=== PATIENT | female | born 1930 | race Caucasian/White ===

== ENCOUNTER 2017-07-10 11:24 | Inpatient (IN) | payer MEDICARE, OTHER ==
[2017-07-10] MEDS: HYDROCODONE/APAP (5/325) TAB PO (11:54)
[2017-07-10 12:18] LABS: ADD MAN DIFF? NO
[2017-07-10 12:54] LABS: WHITE BLOOD COUNT 10.5 10^3/ul (4.8-10.8)
[2017-07-10 12:54] LABS: BASOPHIL # 0.1 10^3/ul (0.0-0.1); BASOPHILS % 0.5 % (0.0-2.0); EOSINOPHILS % 0.2 % (0.0-7.0); HEMATOCRIT 34.1 % (37.0-47.0); HEMOGLOBIN 11.4 g/dl (12.0-16.0); LYMPHOCYTES # 0.7 10^3/ul (0.8-2.9); LYMPHOCYTES % 6.3 % (15.0-51.0); MEAN CORPUSCULAR HEMOGLOBIN 34.9 pg (29.0-33.0); MEAN CORPUSCULAR HGB CONC 33.4 g/dl (32.0-37.0); MEAN CORPUSCULAR VOLUME 104.3 fl (82.0-101.0); MEAN PLATELET VOLUME 10.4 fl (7.4-10.4); MONOCYTE # 0.6 10^3/ul (0.3-0.9); MONOCYTES % 5.9 % (0.0-11.0); NEUTROPHILS % 84.8 % (39.0-77.0); PLATELET COUNT 158 10^3/UL (140-415); RED BLOOD COUNT 3.27 10^6/ul (4.20-5.40); RED CELL DISTRIBUTION WIDTH 13.8 % (11.5-14.5)
[2017-07-10 13:11] LABS: ANION GAP 16 (8-16); BLOOD UREA NITROGEN 40 mg/dl (7-20); CALCIUM 9.2 mg/dl (8.4-10.2); CARBON DIOXIDE 27 mmol/L (21-31); CHLORIDE 102 mmol/L (97-110); CREATININE 1.08 mg/dl (0.44-1.00); GLUCOSE 135 mg/dl (70-220); SODIUM 141 mmol/L (135-144)
[2017-07-10 13:24] LABS: TROPONIN-I < 0.012 ng/ml (0.00-0.12)
[2017-07-10 13:26] LABS: INR 1.07; PT RATIO 1.1
[2017-07-10] MEDS: morphine 2 MG INJ IV (14:09)
[2017-07-10] MEDS: VANCOMYCIN 1 GM in 250 ML IVPB (14:46)
[2017-07-10] MEDS ORDERED: ONDANSETRON 4 MG INJ IV (16:00)
[2017-07-10] MEDS ORDERED: DIPHENHYDRAMINE 50 MG INJ IV (16:00)
[2017-07-10] MEDS: FENTAnyl 50 MCG/ML VIAL IV ×2 (17:25→19:33)
[2017-07-10 19:05] LABS: ADD UMIC YES; UR ASCORBIC ACID NEGATIVE (NEGATIVE); UR BILIRUBIN (Dip) NEGATIVE (NEGATIVE); UR BLOOD (Dip) NEGATIVE (NEGATIVE); UR CLARITY CLEAR (CLEAR); UR COLOR STRAW (YELLOW); UR GLUCOSE (Dip) NEGATIVE (NEGATIVE); UR KETONES (Dip) NEGATIVE (NEGATIVE); UR LEUKOCYTE ESTERASE (Dip) TRACE Leu/ul (NEGATIVE); UR NITRITE (Dip) NEGATIVE (NEGATIVE); UR RBC 1 /HPF (0-5); UR SPECIFIC GRAVITY (Dip) 1.009 (1.003-1.030); UR TOTAL PROTEIN (Dip) NEGATIVE (NEGATIVE); UR UROBILINOGEN (Dip) NEGATIVE (NEGATIVE); UR WBC 1 /HPF (0-5)
[2017-07-10 19:11] LABS: SODIUM,URINE RANDOM 102 mmol/L (30-90)
[2017-07-10 19:11] LABS: CREATININE,URINE RANDOM 24.09 mg/dl (20-320)
[2017-07-10] MEDS: POLYMYXIN/BACITRACIN 1L IRRIG IRR (19:32)
[2017-07-10] MEDS: FAMOTIDINE 20 MG TAB PO (21:28)
[2017-07-10] MEDS: GABAPENTIN 100 MG CAP PO (21:29)
[2017-07-10] MEDS: CHOLECALCIFEROL 1,000 UNIT TAB PO (21:29)
[2017-07-10] MEDS: oxyCODONE (CR) 20 MG TAB [oxyCONTIN] PO (21:32)
[2017-07-10] MEDS: ISOSORBIDE MONONITRATE 20 MG TAB PO (22:40)
[2017-07-11] MEDS: oxyCODONE (CR) 20 MG TAB [oxyCONTIN] PO ×3 (06:00→17:11)
[2017-07-11] MEDS: PANTOPRAZOLE (EC) 40 MG TAB PO (06:01)
[2017-07-11 07:06] LABS: ADD MAN DIFF? NO
[2017-07-11 07:29] LABS: WHITE BLOOD COUNT 5.6 10^3/ul (4.8-10.8)
[2017-07-11 07:29] LABS: BASOPHILS % 0.5 % (0.0-2.0); EOSINOPHILS # 0.1 10^3/ul (0.0-0.5); EOSINOPHILS % 1.1 % (0.0-7.0); HEMATOCRIT 27.4 % (37.0-47.0); HEMOGLOBIN 9.2 g/dl (12.0-16.0); LYMPHOCYTES # 1.1 10^3/ul (0.8-2.9); LYMPHOCYTES % 18.8 % (15.0-51.0); MEAN CORPUSCULAR HEMOGLOBIN 34.8 pg (29.0-33.0); MEAN CORPUSCULAR HGB CONC 33.6 g/dl (32.0-37.0); MEAN CORPUSCULAR VOLUME 103.8 fl (82.0-101.0); MEAN PLATELET VOLUME 10.4 fl (7.4-10.4); MONOCYTE # 0.6 10^3/ul (0.3-0.9); MONOCYTES % 10.3 % (0.0-11.0); NEUTROPHIL # 3.8 10^3/ul (1.6-7.5); NEUTROPHILS % 67.9 % (39.0-77.0); PLATELET COUNT 137 10^3/UL (140-415); RED BLOOD COUNT 2.64 10^6/ul (4.20-5.40); RED CELL DISTRIBUTION WIDTH 13.9 % (11.5-14.5)
[2017-07-11 07:36] LABS: PHOSPHORUS 3.9 mg/dl (2.5-4.9)
[2017-07-11 07:36] LABS: MAGNESIUM 1.3 mg/dl (1.7-2.5)
[2017-07-11 07:37] LABS: ALANINE AMINOTRANSFERASE 20 IU/L (13-69); ALBUMIN 3.4 g/dl (3.3-4.9); ALBUMIN/GLOBULIN RATIO 1.54; ALKALINE PHOSPHATASE 27 IU/L (42-121); ANION GAP 12 (8-16); ASPARTATE AMINO TRANSFERASE 23 IU/L (15-46); BILIRUBIN,INDIRECT 0.6 mg/dl (0-1.1); BILIRUBIN,TOTAL 0.6 mg/dl (0.2-1.3); BLOOD UREA NITROGEN 36 mg/dl (7-20); CALCIUM 8.7 mg/dl (8.4-10.2); CARBON DIOXIDE 30 mmol/L (21-31); CHLORIDE 100 mmol/L (97-110); CREATININE 0.94 mg/dl (0.44-1.00); GLUCOSE 92 mg/dl (70-220); POTASSIUM 3.6 mmol/L (3.5-5.1); SODIUM 138 mmol/L (135-144); TOTAL PROTEIN 5.6 g/dl (6.1-8.1)
[2017-07-11 07:47] LABS: TROPONIN-I < 0.012 ng/ml (0.00-0.12)
[2017-07-11] MEDS: INSULIN ASPART [NOVOLOG] 3 ML PEN SC ×4 (07:55→21:00)
[2017-07-11] MEDS ORDERED: GLUCOSE GEL 15 GRAM TUBE PO ×2 (08:00)
[2017-07-11] MEDS ORDERED: GLUCOSE GEL 15 GRAM TUBE BUCCAL (08:00)
[2017-07-11] MEDS ORDERED: DEXTROSE 50% 50 ML SYRINGE IV ×2 (08:00)
[2017-07-11] MEDS ORDERED: GLUCAGON 1 MG INJ IM (08:00)
[2017-07-11] MEDS: Discontinue current oral sulfonylureas (glyburide, glipizide, and/or glimepiride) prior to XX (08:13)
[2017-07-11] MEDS: HYPOGLYCEMIA PROTOCOL when Glucose is <70 mg/dL or symptomatic <90 mg/dL. XX (08:13)
[2017-07-11] MEDS: GABAPENTIN 100 MG CAP PO ×3 (08:26→20:59)
[2017-07-11] MEDS: CHOLECALCIFEROL 1,000 UNIT TAB PO ×2 (08:26→20:59)
[2017-07-11] MEDS: FAMOTIDINE 20 MG TAB PO ×2 (08:26→20:59)
[2017-07-11] MEDS: ATENOLOL 100 MG TAB PO (08:27)
[2017-07-11] MEDS: BETA CAROTENE/VIT C/E/MIN TAB PO (08:27)
[2017-07-11] MEDS: ISOSORBIDE MONONITRATE 20 MG TAB PO ×2 (08:27→20:59)
[2017-07-11] MEDS: FENOFIBRATE 145 MG TAB PO (08:28)
[2017-07-11] MEDS: VALSARTAN 160 MG TAB PO (08:28)
[2017-07-11] MEDS: NIFEdipine (XL) 90 MG TAB PO (08:29)
[2017-07-11] MEDS: metFORMIN 500 MG TAB PO ×2 (08:29→17:10)
[2017-07-11] MEDS ORDERED: HYDROCHLOROTHIAZIDE 25 MG TAB PO (09:00)
[2017-07-11] MEDS: MAGNESIUM SULFATE 2 GM/50 ML 50 ML IVPB (10:50)
[2017-07-11] MEDS: ENOXAPARIN 30 MG/0.3 ML SYG SC (11:01)
[2017-07-11 15:03] LABS: HEMATOCRIT 26.5 % (37.0-47.0)
[2017-07-11] MEDS: OXYCODONE/ACETAMINOPHEN (5/325) TAB PO (21:48)
[2017-07-12] MEDS: ACCU-CHEK XX (02:00)
[2017-07-12] MEDS: oxyCODONE (CR) 20 MG TAB [oxyCONTIN] PO ×3 (05:39→21:45)
[2017-07-12] MEDS: PANTOPRAZOLE (EC) 40 MG TAB PO (05:39)
[2017-07-12] MEDS: INSULIN ASPART [NOVOLOG] 3 ML PEN SC ×4 (07:55→20:35)
[2017-07-12 08:29] LABS: ADD MAN DIFF? NO
[2017-07-12] MEDS: FENOFIBRATE 145 MG TAB PO (08:34)
[2017-07-12] MEDS: OXYCODONE/ACETAMINOPHEN (5/325) TAB PO ×3 (08:34→19:47)
[2017-07-12] MEDS: BETA CAROTENE/VIT C/E/MIN TAB PO (08:34)
[2017-07-12] MEDS: CHOLECALCIFEROL 1,000 UNIT TAB PO ×2 (08:35→20:35)
[2017-07-12] MEDS: FAMOTIDINE 20 MG TAB PO ×2 (08:36→20:35)
[2017-07-12] MEDS: GABAPENTIN 100 MG CAP PO ×3 (08:36→20:35)
[2017-07-12] MEDS: ATENOLOL 100 MG TAB PO (08:37)
[2017-07-12] MEDS: NIFEdipine (XL) 90 MG TAB PO (08:37)
[2017-07-12 08:38] LABS: WHITE BLOOD COUNT 5.1 10^3/ul (4.8-10.8)
[2017-07-12 08:38] LABS: BASOPHILS % 0.8 % (0.0-2.0); EOSINOPHILS # 0.1 10^3/ul (0.0-0.5); EOSINOPHILS % 1.8 % (0.0-7.0); HEMATOCRIT 26.6 % (37.0-47.0); HEMOGLOBIN 8.9 g/dl (12.0-16.0); LYMPHOCYTES % 19.3 % (15.0-51.0); MEAN CORPUSCULAR HEMOGLOBIN 34.8 pg (29.0-33.0); MEAN CORPUSCULAR HGB CONC 33.5 g/dl (32.0-37.0); MEAN CORPUSCULAR VOLUME 103.9 fl (82.0-101.0); MEAN PLATELET VOLUME 10.3 fl (7.4-10.4); MONOCYTE # 0.5 10^3/ul (0.3-0.9); MONOCYTES % 9.7 % (0.0-11.0); NEUTROPHIL # 3.4 10^3/ul (1.6-7.5); NEUTROPHILS % 66.8 % (39.0-77.0); PLATELET COUNT 127 10^3/UL (140-415); RED BLOOD COUNT 2.56 10^6/ul (4.20-5.40)
[2017-07-12] MEDS: ISOSORBIDE MONONITRATE 20 MG TAB PO ×2 (08:38→20:34)
[2017-07-12] MEDS: metFORMIN 500 MG TAB PO ×2 (08:38→18:11)
[2017-07-12] MEDS: VALSARTAN 160 MG TAB PO (08:38)
[2017-07-12] MEDS: ENOXAPARIN 30 MG/0.3 ML SYG SC (08:49)
[2017-07-12 08:55] LABS: ANION GAP 8 (8-16); BLOOD UREA NITROGEN 33 mg/dl (7-20); CALCIUM 8.8 mg/dl (8.4-10.2); CARBON DIOXIDE 33 mmol/L (21-31); CHLORIDE 99 mmol/L (97-110); CREATININE 0.88 mg/dl (0.44-1.00); GLUCOSE 105 mg/dl (70-220); PHOSPHORUS 3.2 mg/dl (2.5-4.9); POTASSIUM 3.8 mmol/L (3.5-5.1); SODIUM 136 mmol/L (135-144)
[2017-07-12 14:22] LABS: CREATININE, RANDOM URINE 28 mg/dL (20-320); MICROALBUMIN 0.4 mg/dL; MICROALBUMIN/CREATININE RATIO 14 (<30)
[2017-07-13] MEDS: ACCU-CHEK XX (02:00)
[2017-07-13] MEDS: OXYCODONE/ACETAMINOPHEN (5/325) TAB PO ×2 (02:26→10:26)
[2017-07-13] MEDS: PANTOPRAZOLE (EC) 40 MG TAB PO (05:32)
[2017-07-13] MEDS: oxyCODONE (CR) 20 MG TAB [oxyCONTIN] PO (05:33)
[2017-07-13 07:22] LABS: ADD MAN DIFF? NO
[2017-07-13 07:27] LABS: BASOPHILS % 0.5 % (0.0-2.0); EOSINOPHILS # 0.1 10^3/ul (0.0-0.5); EOSINOPHILS % 2.1 % (0.0-7.0); HEMATOCRIT 25.4 % (37.0-47.0); HEMOGLOBIN 8.5 g/dl (12.0-16.0); LYMPHOCYTES # 1.1 10^3/ul (0.8-2.9); LYMPHOCYTES % 18.8 % (15.0-51.0); MEAN CORPUSCULAR HEMOGLOBIN 34.8 pg (29.0-33.0); MEAN CORPUSCULAR HGB CONC 33.5 g/dl (32.0-37.0); MEAN CORPUSCULAR VOLUME 104.1 fl (82.0-101.0); MEAN PLATELET VOLUME 10.2 fl (7.4-10.4); MONOCYTE # 0.7 10^3/ul (0.3-0.9); MONOCYTES % 11.2 % (0.0-11.0); NEUTROPHIL # 3.8 10^3/ul (1.6-7.5); NEUTROPHILS % 65.7 % (39.0-77.0); PLATELET COUNT 125 10^3/UL (140-415); RED BLOOD COUNT 2.44 10^6/ul (4.20-5.40); RED CELL DISTRIBUTION WIDTH 13.8 % (11.5-14.5)
[2017-07-13 07:27] LABS: WHITE BLOOD COUNT 5.8 10^3/ul (4.8-10.8)
[2017-07-13] MEDS: INSULIN ASPART [NOVOLOG] 3 ML PEN SC ×2 (07:55→11:50)
[2017-07-13] MEDS: NIFEdipine (XL) 90 MG TAB PO (08:32)
[2017-07-13] MEDS: metFORMIN 500 MG TAB PO (08:32)
[2017-07-13] MEDS: VALSARTAN 160 MG TAB PO (08:33)
[2017-07-13] MEDS: ISOSORBIDE MONONITRATE 20 MG TAB PO (08:33)
[2017-07-13] MEDS: BETA CAROTENE/VIT C/E/MIN TAB PO (08:33)
[2017-07-13] MEDS: FAMOTIDINE 20 MG TAB PO (08:34)
[2017-07-13] MEDS: CHOLECALCIFEROL 1,000 UNIT TAB PO (08:34)
[2017-07-13] MEDS: FENOFIBRATE 145 MG TAB PO (08:35)
[2017-07-13] MEDS: GABAPENTIN 100 MG CAP PO ×2 (08:35→12:34)
[2017-07-13] MEDS: ATENOLOL 100 MG TAB PO (08:36)
[2017-07-13] MEDS: ENOXAPARIN 30 MG/0.3 ML SYG SC (08:37)
== END 2017-07-13 12:50 | disposition home health service (06) | DRG 259 ==
LOC: E/R 11:24 → CCL 14:30 → SDS 14:30 → CCL 14:30 → REC 13:59 → TEL 17:59
PROC: 0JPT0PZ Removal of Cardiac Rhythm Related Device from Trunk Subcutaneous Tissue and Fascia, Open Approach (ICD-10-PCS; principal; 2017-07-10 14:59)
PROC: 0JH606Z Insertion of Pacemaker, Dual Chamber into Chest Subcutaneous Tissue and Fascia, Open Approach (ICD-10-PCS; 2017-07-10 14:59)
DX: T82.111A Breakdown (mechanical) of cardiac pulse generator (battery), initial encounter (principal); S82.152A Displaced fracture of left tibial tuberosity, initial encounter for closed fracture; N17.9 Acute kidney failure, unspecified; E11.40 Type 2 diabetes mellitus with diabetic neuropathy, unspecified; E11.649 Type 2 diabetes mellitus with hypoglycemia without coma; E83.42 Hypomagnesemia; D64.9 Anemia, unspecified; I10 Essential (primary) hypertension; E86.0 Dehydration; I25.10 Atherosclerotic heart disease of native coronary artery without angina pectoris; I95.1 Orthostatic hypotension; E78.5 Hyperlipidemia, unspecified; M19.90 Unspecified osteoarthritis, unspecified site; G89.4 Chronic pain syndrome; W19.XXXA Unspecified fall, initial encounter; Z96.641 Presence of right artificial hip joint; Z79.4 Long term (current) use of insulin; Z95.0 Presence of cardiac pacemaker
CPT/HCPCS: 33264; 36415; 70450; 71045; 73562; 80048; 80053; 81001; 81003; 82043; 82962; 83735; 84100; 84155; 84300; 84484; 85014; 85018; 85025; 85610; 85730; 93005; 93306; 96374; 97116; 97162; 97530; 99285-25